=== PATIENT | male | born 1985 | race African-American/Black ===

== ENCOUNTER 2020-08-21 18:46 | Emergency (ER) | payer BC ==
[2020-08-21 19:18] VITALS: BP 150/98
[2020-08-21] MEDS ORDERED: ASPIRIN 81 MG TABLET, CHEWABLE PO ONE (19:54)
--- NOTE | 2020-08-21 20:00 | EKG REPORT ---
SEVERITY:- NORMAL ECG - SINUS RHYTHM : Confirmed by: Margarito Quiñonez MD 21-Aug-2020 20:00:09
--- NOTE | 2020-08-21 20:00 | ER Document Report ---
ED Medical Screen (RME) - General Chief Complaint: Chest Pain Stated Complaint: CHEST PAINS CARDIAC HISTORY Time Seen by Provider: 08/21/20 19:46 Notes: Patient is a 35-year-old male presents to the emergency department with a chief complaint of chest pain that started 2 days ago. Patient states that he feels like somebody is sitting on his chest. Patient reports his father has history of MIs in the past at a young age. He cannot recall what age. Patient also reports that he does have left lower extremity swelling. Patient has been taking Prevacid and Nexium, but has not had relief of his symptoms. He took an 81 mg aspirin prior to coming here. Denies any contact with anyone who tested positive for COVID-19. Exam: S1, S2. I have greeted and performed a rapid initial assessment of this patient. A comprehensive ED assessment and evaluation of the patient, analysis of test results and completion of medical decision making process will be conducted by an additional ED providers. TRAVEL OUTSIDE OF THE [place] IN LAST 30 DAYS: No - Related Data Allergies/Adverse Reactions: No Known Allergies Allergy (Unverified 12/12/14 10:24) Past Medical History - Social History Chew tobacco use (# tins/day): No Frequency of alcohol use: None Drug Abuse: None - Past Medical History Cardiac Medical History: Denies: Hx DVT, Hx Hypercholesterolemia, Hx Hypertension, Hx Pulmonary Embolism Pulmonary Medical History: Denies: Hx Asthma Endocrine Medical History: Denies: Hx Diabetes Mellitus Type 1, Hx Diabetes Mellitus Type 2 Past Surgical History: Reports: Hx Orthopedic Surgery - heel - Immunizations Immunizations up to date: No Hx Diphtheria, Pertussis, Tetanus Vaccination: No Physical Exam - Vital signs Vitals: Temp Pulse Resp BP Pulse Ox 97.6 F 68 19 150/98 H 100 08/21/20 19:08 08/21/20 19:08 08/21/20 19:08 08/21/20 19:08 08/21/20 19:08 Course - Vital Signs Vital signs: Temp Pulse Resp BP Pulse Ox 97.6 F 68 19 150/98 H 100 08/21/20 19:08 08/21/20 19:08 08/21/20 19:08 08/21/20 19:08 08/21/20 19:08
[2020-08-21 20:31] LABS: ABSOLUTE EOSINOPHILS # (AUTO) 0.1 10^3/uL (0.0-0.6); ABSOLUTE LYMPHOCYTES (AUTO) 2.1 10^3/uL (0.5-4.7); ABSOLUTE MONOCYTES (AUTO) 0.7 10^3/uL (0.1-1.4); ABSOLUTE NEUT (AUTO) 3.2 10^3/uL (1.7-8.2); BASOPHILS % (AUTO) 0.6 % (0-2); EOSINOPHILS % (AUTO) 1.3 % (0-6); HEMOGLOBIN 14.6 g/dL (13.5-17.0); LYMPHOCYTES % (AUTO) 34.3 % (13-45); MEAN CORPUSCULAR HEMOGLOBIN 30.6 pg (27.0-33.4); MEAN CORPUSCULAR HGB CONC 34.7 g/dL (32.0-36.0); MEAN CORPUSCULAR VOLUME 88 fl (80-97); MONOCYTES % (AUTO) 10.9 % (3-13); PLATELET COUNT 222 10^3/uL (150-450); RED BLOOD COUNT 4.76 10^6/uL (4.35-5.55); RED CELL DISTRIBUTION WIDTH 13.3 % (11.5-14.0); SEGMENTED NEUTROPHILS % (AUTO) 52.9 % (42-78); TOTAL CELLS COUNTED % (AUTO) 100 %; WHITE BLOOD COUNT 6.1 10^3/uL (4.0-10.5)
--- NOTE | 2020-08-21 20:35 | RADIOLOGY REPORT (SQ) ---
EXAM DESCRIPTION: XR CHEST 2 VIEWS COMPLETED DATE/TME: 08/21/2020 20:08 CLINICAL HISTORY: 35 years, Male, chest pain COMPARISON: None. NUMBER OF VIEWS: 2 FINDINGS: The right hemidiaphragm is elevated. Right basilar subsegmental atelectasis. Lungs are otherwise clear. No pleural abnormalities. Cardiac silhouette is normal in size. IMPRESSION: Right basilar subsegmental atelectasis. Persistent elevation the right hemidiaphragm.
[2020-08-21 20:48] LABS: ALBUMIN 4.1 g/dL (3.5-5.0); ALKALINE PHOSPHATASE 79 U/L (38-126); ANION GAP 5 (5-19); ASPARTATE AMINO TRANSFERASE 32 U/L (17-59); BILIRUBIN,DIRECT 0.1 mg/dL (0.0-0.4); BILIRUBIN,TOTAL 1.1 mg/dL (0.2-1.3); BLOOD UREA NITROGEN 17 mg/dL (7-20); CALCIUM 9.6 mg/dL (8.4-10.2); CARBON DIOXIDE 30 mmol/L (22-30); CHLORIDE 103 mmol/L (98-107); CREATINE KINASE 624 U/L (55-170); GLUCOSE 96 mg/dL (75-110); POTASSIUM 4.4 mmol/L (3.6-5.0); TOTAL PROTEIN 7.6 g/dL (6.3-8.2)
[2020-08-21 21:00] LABS: NT PRO BNP 43 pg/mL (<125)
[2020-08-21 21:05] LABS: TROPONIN I < 0.012 ng/mL
--- NOTE | 2020-08-22 00:31 | RADIOLOGY REPORT (SQ) ---
EXAM DESCRIPTION: US EXTREMITY VEINS UNILATERAL COMPLETED DATE/TME: 08/21/2020 10:30 CLINICAL HISTORY: 35 years, Male, LLE swelling TECHNIQUE: The left lower extremity deep venous system was evaluated with grayscale and Doppler ultrasound. Note: DVT=deep vein thrombosis. FINDINGS: Acute DVT: Negative. Other: IMPRESSION: 1. No evidence of acute DVT.
== END 2020-08-22 03:50 | disposition left against medical advice (07) ==
LOC: ER 18:46
DX: R07.9 Chest pain, unspecified (principal)
CPT/HCPCS: 36415; 71046; 80053; 82550; 83735; 83880; 84484; 85025; 93005; 93010; 93971; 99281